=== PATIENT | female | born 1960 | race Caucasian/White ===

== ENCOUNTER 2017-11-12 13:22 | Emergency (ER) | payer MEDICARE, MEDICAID ==
[~2017-11-12] VITALS: Ht 157.5 cm; Wt 64.0 kg
[~2017-11-12 13:22] MED LIST: CEPH-357 PO; DULO-31 PO; IBUP-1984 PO; LORA1TAB PO; NORCO10T PO
[2017-11-12] MEDS ORDERED: GABA-530 PO (13:41)
[2017-11-12] MEDS ORDERED: ASPI-1130 PO (13:41)
[2017-11-12 14:19] LABS: BASOPHILS % (AUTO) 0.5 % (0-1); EOSINOPHILS # (AUTO) 0.2 X10'3 (0-0.9); HEMOGLOBIN 13.4 g/dl (12.0-16.0); LYMPHOCYTES # (AUTO) 2.6 X10'3 (1.1-4.8); LYMPHOCYTES % (AUTO) 29.5 % (21-51); MEAN CORPUSCULAR HEMOGLOBIN 31.6 PG (27.0-31.0); MEAN CORPUSCULAR HGB CONC 34.4 % (33.0-36.5); MEAN CORPUSCULAR VOLUME 91.9 FL (78-98); MEAN PLATELET VOLUME 7.9 FL (7.4-10.4); MONOCYTES # (AUTO) 0.6 X10'3 (0-0.9); MONOCYTES % (AUTO) 6.9 % (2-12); NEUTROPHILS # (AUTO) 5.4 X10'3 (1.8-7.7); NEUTROPHILS % (AUTO) 61.1 % (42-75); PLATELET COUNT 328 X10'3 (140-440); RED BLOOD COUNT 4.24 X10'6 (4.20-5.60); RED CELL DISTRIBUTION WIDTH 13.6 % (11.5-14.5); WHITE BLOOD COUNT 8.8 X10'3 (4.5-11.0)
[2017-11-12 14:33] LABS: ALANINE AMINOTRANSFERASE 21 U/L (12-78); ALBUMIN 3.6 G/DL (3.4-5.0); ALBUMIN/GLOBULIN RATIO 1.1 (1.1-1.5); ALKALINE PHOSPHATASE 116 IU/L (46-116); ANION GAP 7 (8-16); ASPARTATE AMINO TRANSFERASE 14 U/L (10-37); BILIRUBIN,TOTAL 0.5 MG/DL (0.1-1.0); BLOOD UREA NITROGEN 18 MG/DL (7-18); BUN/CREATININE RATIO 17.3 (6.6-38.0); CALCIUM 9.2 MG/DL (8.5-10.1); CHLORIDE 106 MMOL/L (99-107); CREATININE 1.04 MG/DL (0.40-0.90); ETHANOL < 0.010 GM/DL (0.0-0.010); GLUCOSE 100 MG/DL (70-104); POTASSIUM 4.2 MMOL/L (3.5-5.1); SODIUM 141 MMOL/L (135-145); TOTAL CARBON DIOXIDE 28.1 MMOL/L (24-32); TOTAL PROTEIN 6.9 G/DL (6.4-8.2); eGFR 54 ML/MIN
[2017-11-12 14:37] LABS: ACETAMINOPHEN < 2.0 UG/ML (10-30)
[2017-11-12 15:17] LABS: URINE HCG NEGATIVE (NEG)
[2017-11-12 15:23] LABS: URINE AMPHETAMINE SCREEN POSITIVE (Neg); URINE BARBITUATE SCREEN NEGATIVE (Neg); URINE BENZODIAZEPINES SCREEN NEGATIVE (Neg); URINE CANNABINOID SCREEN NEGATIVE (Neg); URINE COCAINE SCREEN NEGATIVE (Neg); URINE METHADONE SCREEN NEGATIVE (Neg); URINE OPIATE SCREEN POSITIVE (Neg); URINE PHENCYCLIDINE SCREEN NEGATIVE (Neg)
[2017-11-13 05:25] VITALS: BP 127/88
[2017-11-13] MEDS ORDERED: ibuprofen tablet 400 MG TABLET PO PRN (07:45)
[2017-11-13] MEDS ORDERED: LORazepam 1 MG tablet PO PRN (07:45)
[2017-11-13] MEDS ORDERED: duloxetine 30mg CAPSULE.DR PO SCH (08:00)
[2017-11-13] MEDS ORDERED: aspirin 81mg tablet.DR PO SCH (08:00)
[2017-11-13] MEDS ORDERED: LORazepam 0.5 MG tablet PO PRN (08:11)
[2017-11-13] MEDS ORDERED: LORazepam 0.5 MG tablet PO SCH ×2 (08:18→20:00)
[2017-11-13] MEDS ORDERED: BUSP10TA11 PO (09:17)
[2017-11-13] MEDS ORDERED: gabapentin 100mg capsule PO SCH (21:00)
== END 2017-11-13 14:40 ==
LOC: ER 13:23
DX: F32.9 Major depressive disorder, single episode, unspecified (principal); R45.851 Suicidal ideations; F15.90 Other stimulant use, unspecified, uncomplicated; J45.909 Unspecified asthma, uncomplicated; F41.9 Anxiety disorder, unspecified; Z90.710 Acquired absence of both cervix and uterus; Z88.1 Allergy status to other antibiotic agents; Z88.5 Allergy status to narcotic agent; Z79.899 Other long term (current) drug therapy; Z79.82 Long term (current) use of aspirin; Z59.0 Homelessness; Z56.0 Unemployment, unspecified
CPT/HCPCS: 36415; 80053; 80305; 80320; 80329; 81025; 85025; 99285; J7030

== ENCOUNTER 2017-11-13 12:50 | Inpatient (IN) | payer MEDICARE, MEDICAID ==
[~2017-11-13] VITALS: Ht 157.5 cm; Wt 70.2 kg
[~2017-11-13 12:50] MED LIST changes: +ASPI-1130 PO; +BUSP10TA11 PO; -CEPH-357 PO; +GABA-530 PO; -NORCO10T PO
[2017-11-13] MEDS ORDERED: nicotine 21mg patch - 24 hr TD ONE (14:50)
[2017-11-13 15:00] VITALS: BP 120/62
[2017-11-13] MEDS ORDERED: acetaminophen 325mg tablet PO PRN ×2 (16:20)
[2017-11-13] MEDS ORDERED: mag hydrox/Alum hydrox/simeth 30ml oral suspension PO PRN (16:20)
[2017-11-13] MEDS ORDERED: magnesium hydroxide 30ml (MOM) UD suspension PO PRN (16:20)
[2017-11-13] MEDS ORDERED: pneumococcal 23-VAL P-sac vacc 25 mcg/0.5ml vial IMVAC ONE (16:45)
[2017-11-13 16:50] LABS: CLARITY,URINE CLEAR (Clear); COLOR,URINE YELLOW (Yellow); GLUCOSE, URINE NEGATIVE (Neg); KETONES,URINE TRACE mg/dl (Neg); LEUKOCYTE ESTERASE ,URINE NEGATIVE (Neg); NITRITES, URINE NEGATIVE (Neg); OCCULT BLOOD,URINE NEGATIVE (Neg); PH,URINE 6.5 (4.8-8.0); PROTEIN,URINE NEGATIVE (Neg); UROBILINOGEN,URINE 0.2 E.U/dL (0.2-1.0)
[2017-11-13 16:56] LABS: UA COLLECTION TYPE NON-SPECIFIED
[2017-11-13 19:00] VITALS: BP 134/71
[2017-11-13] MEDS: traZODone 50mg tablet PO PRN (20:53)
[2017-11-14 07:32] LABS: HEMOGLOBIN A1C 5.6 % (4.5-6.2)
[2017-11-14 07:36] LABS: CHOL/HDL RATIO 4.5 (0.00-4.99); CHOLESTEROL 161 MG/DL (0-200); HDL CHOLESTEROL 36 MG/DL (35-60); LDL CHOLESTEROL 110 MG/DL (50-100); TRIGLYCERIDES 139 MG/DL (20-135)
[2017-11-14 07:41] VITALS: BP 115/65
[2017-11-14] MEDS ORDERED: busPIRone 5mg tablet PO SCH (08:00)
[2017-11-14] MEDS: aspirin 81mg tablet.DR PO SCH (08:33)
[2017-11-14] MEDS: nicotine 21mg patch - 24 hr TD SCH (08:33)
[2017-11-14] MEDS ORDERED: duloxetine 30mg CAPSULE.DR PO ONE (08:50)
[2017-11-14] MEDS: ibuprofen tablet 400 MG TABLET PO PRN (10:45)
[2017-11-14] MEDS: busPIRone 5mg tablet PO SCH ×2 (12:48→20:29)
[2017-11-14 19:00] VITALS: BP 126/73
[2017-11-14] MEDS: traZODone 50mg tablet PO PRN (20:29)
[2017-11-14] MEDS: gabapentin 100mg capsule PO SCH (20:29)
[2017-11-15] MEDS: pantoprazole 40mg Tablet.DR PO SCH (07:56)
[2017-11-15 08:00] VITALS: BP 109/65
[2017-11-15] MEDS: gabapentin 100mg capsule PO SCH ×3 (08:00→20:41)
[2017-11-15] MEDS: duloxetine 30mg CAPSULE.DR PO SCH (08:39)
[2017-11-15] MEDS: aspirin 81mg tablet.DR PO SCH (08:39)
[2017-11-15] MEDS: busPIRone 5mg tablet PO SCH ×3 (08:39→20:41)
[2017-11-15] MEDS: nicotine 21mg patch - 24 hr TD SCH (09:12)
[2017-11-15] MEDS: ibuprofen tablet 400 MG TABLET PO PRN (18:42)
[2017-11-15 19:12] VITALS: BP 129/74
[2017-11-15] MEDS: traZODone 50mg tablet PO PRN (20:41)
[2017-11-16] MEDS: duloxetine 30mg CAPSULE.DR PO SCH ×2 (07:52→12:51)
[2017-11-16] MEDS: busPIRone 5mg tablet PO SCH ×3 (07:52→20:12)
[2017-11-16] MEDS: aspirin 81mg tablet.DR PO SCH (07:52)
[2017-11-16] MEDS: pantoprazole 40mg Tablet.DR PO SCH (07:52)
[2017-11-16] MEDS: gabapentin 100mg capsule PO SCH ×3 (07:52→20:12)
[2017-11-16] MEDS: nicotine 21mg patch - 24 hr TD SCH (07:54)
[2017-11-16 08:00] VITALS: BP 118/81
[2017-11-16] MEDS ORDERED: tuberculin, purif. prot. deriv. 5 units/0.1ml ID ONE (12:40)
[2017-11-16] MEDS: ibuprofen tablet 400 MG TABLET PO PRN (12:56)
[2017-11-16 20:07] VITALS: BP 138/72
[2017-11-16] MEDS: traZODone 50mg tablet PO PRN (20:12)
[2017-11-17] MEDS: busPIRone 5mg tablet PO SCH ×3 (07:49→20:20)
[2017-11-17] MEDS: gabapentin 100mg capsule PO SCH ×3 (07:49→20:19)
[2017-11-17] MEDS: duloxetine 30mg CAPSULE.DR PO SCH ×2 (07:49→12:34)
[2017-11-17] MEDS: pantoprazole 40mg Tablet.DR PO SCH (07:49)
[2017-11-17] MEDS: aspirin 81mg tablet.DR PO SCH (07:50)
[2017-11-17] MEDS: nicotine 21mg patch - 24 hr TD SCH (07:50)
[2017-11-17 08:00] VITALS: BP 111/68
[2017-11-17] MEDS: ibuprofen tablet 400 MG TABLET PO PRN (12:34)
[2017-11-17 19:16] VITALS: BP 135/81
[2017-11-17] MEDS: traZODone 50mg tablet PO PRN (20:19)
[2017-11-18] MEDS: ibuprofen tablet 400 MG TABLET PO PRN ×2 (06:51→20:44)
[2017-11-18 08:00] VITALS: BP 118/77
[2017-11-18] MEDS: aspirin 81mg tablet.DR PO SCH (08:18)
[2017-11-18] MEDS: pantoprazole 40mg Tablet.DR PO SCH (08:18)
[2017-11-18] MEDS: duloxetine 30mg CAPSULE.DR PO SCH ×2 (08:18→12:41)
[2017-11-18] MEDS: nicotine 21mg patch - 24 hr TD SCH (08:20)
[2017-11-18] MEDS: LIDOcaine 5% patch TP SCH (08:47)
[2017-11-18] MEDS: busPIRone 5mg tablet PO SCH ×3 (08:48→20:44)
[2017-11-18] MEDS: tizanidine 4mg tablet PO PRN (09:59)
[2017-11-18 19:00] VITALS: BP 112/53
[2017-11-18] MEDS: gabapentin 300mg capsule PO SCH (20:44)
[2017-11-19] MEDS: duloxetine 30mg CAPSULE.DR PO SCH ×2 (07:26→12:43)
[2017-11-19] MEDS: pantoprazole 40mg Tablet.DR PO SCH (07:27)
[2017-11-19] MEDS: nicotine 21mg patch - 24 hr TD SCH (07:27)
[2017-11-19] MEDS: busPIRone 5mg tablet PO SCH ×3 (07:27→21:00)
[2017-11-19] MEDS: aspirin 81mg tablet.DR PO SCH (07:27)
[2017-11-19] MEDS: LIDOcaine 5% patch TP SCH (07:28)
[2017-11-19 07:57] VITALS: BP 116/71
[2017-11-19] MEDS: hydrOXYzine 25 MG tablet PO PRN (08:58)
[2017-11-19 20:07] VITALS: BP 117/66
[2017-11-19] MEDS: gabapentin 300mg capsule PO SCH (21:00)
[2017-11-19] MEDS: traZODone 50mg tablet PO PRN (21:40)
[2017-11-20] MEDS: pantoprazole 40mg Tablet.DR PO SCH (07:04)
[2017-11-20] MEDS: ibuprofen tablet 400 MG TABLET PO PRN (07:08)
[2017-11-20] MEDS: LIDOcaine 5% patch TP SCH (07:32)
[2017-11-20] MEDS: aspirin 81mg tablet.DR PO SCH (07:33)
[2017-11-20] MEDS: nicotine 21mg patch - 24 hr TD SCH (07:33)
[2017-11-20] MEDS: busPIRone 5mg tablet PO SCH ×3 (07:34→20:28)
[2017-11-20] MEDS: duloxetine 30mg CAPSULE.DR PO SCH ×2 (07:35→12:29)
[2017-11-20 07:43] VITALS: BP 115/64
[2017-11-20] MEDS: hydrOXYzine 25 MG tablet PO PRN (09:40)
[2017-11-20 19:01] VITALS: BP 131/71
[2017-11-20] MEDS: gabapentin 300mg capsule PO SCH (20:27)
[2017-11-20] MEDS: traZODone 50mg tablet PO PRN (20:27)
[2017-11-21 07:32] VITALS: BP 123/74
[2017-11-21] MEDS: LIDOcaine 5% patch TP SCH (07:51)
[2017-11-21] MEDS: duloxetine 30mg CAPSULE.DR PO SCH ×2 (07:51→12:32)
[2017-11-21] MEDS: pantoprazole 40mg Tablet.DR PO SCH (07:51)
[2017-11-21] MEDS: busPIRone 5mg tablet PO SCH ×3 (07:51→20:08)
[2017-11-21] MEDS: aspirin 81mg tablet.DR PO SCH (07:51)
[2017-11-21] MEDS: nicotine 21mg patch - 24 hr TD SCH (08:00)
[2017-11-21 20:00] VITALS: BP 116/68
[2017-11-21] MEDS: gabapentin 300mg capsule PO SCH (20:07)
[2017-11-22] MEDS: pantoprazole 40mg Tablet.DR PO SCH (07:50)
[2017-11-22] MEDS: aspirin 81mg tablet.DR PO SCH (07:51)
[2017-11-22] MEDS: duloxetine 30mg CAPSULE.DR PO SCH ×2 (07:51→12:50)
[2017-11-22] MEDS: busPIRone 5mg tablet PO SCH ×3 (07:51→20:24)
[2017-11-22] MEDS: LIDOcaine 5% patch TP SCH (07:53)
[2017-11-22] MEDS: nicotine 21mg patch - 24 hr TD SCH (07:58)
[2017-11-22 08:12] VITALS: BP 136/67
[2017-11-22] MEDS ORDERED: nicotine prolacrilex 2mg gum BC PRN (08:25)
[2017-11-22 19:17] VITALS: BP 126/74
[2017-11-22] MEDS: gabapentin 300mg capsule PO SCH (20:24)
[2017-11-22] MEDS: traZODone 50mg tablet PO PRN (22:04)
[2017-11-22] MEDS: tizanidine 4mg tablet PO PRN (22:04)
[2017-11-22] MEDS: hydrOXYzine 25 MG tablet PO PRN (22:04)
[2017-11-23] MEDS: LIDOcaine 5% patch TP SCH ×2 (08:00→08:16)
[2017-11-23] MEDS: pantoprazole 40mg Tablet.DR PO SCH (08:15)
[2017-11-23] MEDS: aspirin 81mg tablet.DR PO SCH (08:15)
[2017-11-23] MEDS: duloxetine 30mg CAPSULE.DR PO SCH ×2 (08:16→13:35)
[2017-11-23] MEDS: busPIRone 5mg tablet PO SCH ×3 (08:16→20:27)
[2017-11-23] MEDS: ibuprofen tablet 400 MG TABLET PO PRN (08:34)
[2017-11-23 08:37] VITALS: BP 122/75
[2017-11-23] MEDS ORDERED: TIZA-248 PO (08:49)
[2017-11-23] MEDS ORDERED: HYDR-3686 PO (08:49)
[2017-11-23] MEDS ORDERED: IBUP-1984 PO (08:49)
[2017-11-23] MEDS ORDERED: GABA300C PO (08:49)
[2017-11-23] MEDS ORDERED: LIDO700A47 TP (08:49)
[2017-11-23] MEDS ORDERED: ASPI-1071 PO (08:49)
[2017-11-23] MEDS ORDERED: BUSP15TA3 PO (08:49)
[2017-11-23] MEDS ORDERED: ARIP5TAB20 PO (08:49)
[2017-11-23] MEDS ORDERED: TRAZ-143 PO (08:49)
[2017-11-23] MEDS ORDERED: PANT40TA4 PO (08:49)
[2017-11-23] MEDS ORDERED: DULO30CA51 PO ×2 (08:49)
[2017-11-23 19:34] VITALS: BP 116/73
[2017-11-23] MEDS: traZODone 50mg tablet PO PRN ×2 (20:27→21:16)
[2017-11-23] MEDS: tizanidine 4mg tablet PO PRN (20:28)
[2017-11-23] MEDS: hydrOXYzine 25 MG tablet PO PRN (20:28)
[2017-11-23] MEDS: gabapentin 300mg capsule PO SCH (20:28)
[2017-11-24] MEDS: aspirin 81mg tablet.DR PO SCH (07:43)
[2017-11-24] MEDS: pantoprazole 40mg Tablet.DR PO SCH (07:43)
[2017-11-24] MEDS: busPIRone 5mg tablet PO SCH (07:43)
[2017-11-24] MEDS: duloxetine 30mg CAPSULE.DR PO SCH (07:44)
[2017-11-24] MEDS: ibuprofen tablet 400 MG TABLET PO PRN (07:50)
[2017-11-24] MEDS: LIDOcaine 5% patch TP SCH (07:52)
[2017-11-24 08:00] VITALS: BP 118/75
== END 2017-11-24 08:45 | DRG 885 ==
LOC: ADULT MH 12:50
PROVIDERS: ADMIT Psychiatry & Neurology Psychiatry; ATTEND Psychiatry & Neurology Psychiatry
DX: F33.2 Major depressive disorder, recurrent severe without psychotic features (principal); R45.851 Suicidal ideations; F15.90 Other stimulant use, unspecified, uncomplicated; F41.1 Generalized anxiety disorder; G62.9 Polyneuropathy, unspecified; H54.7 Unspecified visual loss; G47.00 Insomnia, unspecified; G43.909 Migraine, unspecified, not intractable, without status migrainosus; F17.210 Nicotine dependence, cigarettes, uncomplicated; Z59.0 Homelessness; Z90.710 Acquired absence of both cervix and uterus; Z79.82 Long term (current) use of aspirin; Z79.899 Other long term (current) drug therapy; Z88.1 Allergy status to other antibiotic agents; Z88.5 Allergy status to narcotic agent; Z85.048 Personal history of other malignant neoplasm of rectum, rectosigmoid junction, and anus; Z80.1 Family history of malignant neoplasm of trachea, bronchus and lung; Z81.8 Family history of other mental and behavioral disorders; Z23 Encounter for immunization
CPT/HCPCS: 36415; 80061; 81003; 83036; 87070; 90732; 99285; 99406; Q0177

== ENCOUNTER 2018-01-10 12:39 | Emergency (ER) | payer MEDICARE, MEDICAID ==
[~2018-01-10] VITALS: Ht 552.4 cm; Wt 68.0 kg
[~2018-01-10 12:39] MED LIST changes: +ARIP5TAB20 PO; +ASPI-1071 PO; -ASPI-1130 PO; -BUSP10TA11 PO; +BUSP15TA3 PO; -DULO-31 PO; +DULO30CA51 PO; -GABA-530 PO; +GABA300C PO; +HYDR-3686 PO; +LIDO700A47 TP; -LORA1TAB PO; +PANT40TA4 PO; +TIZA-248 PO; +TRAZ-218 PO
[2018-01-10 13:32] LABS: BASOPHILS % (AUTO) 0.5 % (0-1); EOSINOPHILS # (AUTO) 0.3 X10'3 (0-0.9); EOSINOPHILS % (AUTO) 3.5 % (0-6); HEMOGLOBIN 12.6 g/dl (12.0-16.0); LYMPHOCYTES # (AUTO) 2.3 X10'3 (1.1-4.8); LYMPHOCYTES % (AUTO) 27.2 % (21-51); MEAN CORPUSCULAR HEMOGLOBIN 31.6 PG (27.0-31.0); MEAN CORPUSCULAR VOLUME 90.3 FL (78-98); MEAN PLATELET VOLUME 7.6 FL (7.4-10.4); MONOCYTES # (AUTO) 0.5 X10'3 (0-0.9); MONOCYTES % (AUTO) 6.1 % (2-12); NEUTROPHILS # (AUTO) 5.4 X10'3 (1.8-7.7); NEUTROPHILS % (AUTO) 62.7 % (42-75); PLATELET COUNT 275 X10'3 (140-440); RED BLOOD COUNT 3.99 X10'6 (4.20-5.60); WHITE BLOOD COUNT 8.6 X10'3 (4.5-11.0)
[2018-01-10] MEDS ORDERED: GABA-532 PO ×2 (13:37)
[2018-01-10] MEDS ORDERED: ARIP10TA15 PO (13:37)
[2018-01-10] MEDS ORDERED: GABA-530 PO (13:37)
[2018-01-10 13:58] LABS: CLARITY,URINE CLEAR (Clear); COLOR,URINE YELLOW (Yellow); GLUCOSE, URINE NEGATIVE (Neg); KETONES,URINE TRACE mg/dl (Neg); LEUKOCYTE ESTERASE ,URINE NEGATIVE (Neg); NITRITES, URINE NEGATIVE (Neg); OCCULT BLOOD,URINE NEGATIVE (Neg); PROTEIN,URINE NEGATIVE (Neg); UA COLLECTION TYPE CLN CATCH MIDSTREAM; UROBILINOGEN,URINE 0.2 E.U/dL (0.2-1.0)
[2018-01-10 13:59] LABS: URINE HCG NEGATIVE (NEG)
[2018-01-10] MEDS ORDERED: hydrOXYzine 25 MG tablet PO PRN (14:05)
[2018-01-10] MEDS ORDERED: tizanidine 4mg tablet PO PRN (14:05)
[2018-01-10] MEDS ORDERED: traZODone 50mg tablet PO PRN (14:05)
[2018-01-10] MEDS ORDERED: LIDOcaine 5% patch TP PRN (14:05)
[2018-01-10 14:07] LABS: ALANINE AMINOTRANSFERASE 15 U/L (12-78); ALBUMIN 3.5 G/DL (3.4-5.0); ALBUMIN/GLOBULIN RATIO 1.1 (1.1-1.5); ALKALINE PHOSPHATASE 103 IU/L (46-116); ANION GAP 10 (8-16); ASPARTATE AMINO TRANSFERASE 14 U/L (10-37); BILIRUBIN,TOTAL 0.3 MG/DL (0.1-1.0); BLOOD UREA NITROGEN 21 MG/DL (7-18); BUN/CREATININE RATIO 21.2 (6.6-38.0); CALCIUM 8.6 MG/DL (8.5-10.1); CHLORIDE 105 MMOL/L (99-107); CREATININE 0.99 MG/DL (0.40-0.90); GLUCOSE 132 MG/DL (70-104); POTASSIUM 4.1 MMOL/L (3.5-5.1); SODIUM 139 MMOL/L (135-145); TOTAL CARBON DIOXIDE 24.4 MMOL/L (24-32); TOTAL PROTEIN 6.7 G/DL (6.4-8.2); eGFR 57 ML/MIN
[2018-01-10 14:09] LABS: URINE AMPHETAMINE SCREEN POSITIVE (Neg); URINE BARBITUATE SCREEN NEGATIVE (Neg); URINE BENZODIAZEPINES SCREEN NEGATIVE (Neg); URINE CANNABINOID SCREEN NEGATIVE (Neg); URINE COCAINE SCREEN NEGATIVE (Neg); URINE METHADONE SCREEN NEGATIVE (Neg); URINE OPIATE SCREEN NEGATIVE (Neg); URINE PHENCYCLIDINE SCREEN NEGATIVE (Neg)
[2018-01-10 14:15] LABS: ETHANOL < 0.010 GM/DL (0.0-0.010)
[2018-01-10] MEDS: ibuprofen tablet 400 MG TABLET PO PRN (15:23)
[2018-01-10] MEDS: gabapentin 100mg capsule PO SCH ×2 (15:24→20:12)
[2018-01-10] MEDS: busPIRone 15mg tablet PO SCH (20:12)
[2018-01-10] MEDS ORDERED: gabapentin 300mg capsule PO SCH (21:00)
[2018-01-10] MEDS ORDERED: aripiprazole 5mg tablet PO SCH (21:00)
[2018-01-11 05:30] VITALS: BP 117/70
[2018-01-11] MEDS ORDERED: pantoprazole 40mg Tablet.DR PO SCH (07:30)
[2018-01-11] MEDS ORDERED: duloxetine 30mg CAPSULE.DR PO SCH ×2 (08:00→12:30)
[2018-01-11] MEDS ORDERED: aspirin 81mg tablet.DR PO SCH (08:00)
[2018-01-11] MEDS: gabapentin 100mg capsule PO SCH (08:18)
[2018-01-11] MEDS: busPIRone 15mg tablet PO SCH (08:18)
[2018-01-11] MEDS: ibuprofen tablet 400 MG TABLET PO PRN (10:58)
== END 2018-01-11 11:35 ==
LOC: ER 12:39
DX: F32.9 Major depressive disorder, single episode, unspecified (principal); F22 Delusional disorders; F15.10 Other stimulant abuse, uncomplicated; F41.9 Anxiety disorder, unspecified; J45.909 Unspecified asthma, uncomplicated; F17.200 Nicotine dependence, unspecified, uncomplicated; Z88.1 Allergy status to other antibiotic agents; Z88.6 Allergy status to analgesic agent; Z79.82 Long term (current) use of aspirin; Z88.4 Allergy status to anesthetic agent; Z56.0 Unemployment, unspecified; Z59.0 Homelessness; Z90.710 Acquired absence of both cervix and uterus
CPT/HCPCS: 36415; 80053; 80305; 80320; 81003; 81025; 84443; 85025; 99285

== ENCOUNTER 2018-01-11 10:30 | Inpatient (IN) | payer MEDICARE, MEDICAID ==
[~2018-01-11] VITALS: Ht 157.5 cm; Wt 69.5 kg
[~2018-01-11 10:30] MED LIST changes: +ARIP10TA15 PO; -ARIP5TAB20 PO; +GABA-530 PO; -GABA300C PO
[2018-01-11 11:50] VITALS: BP 123/75
[2018-01-11] MEDS ORDERED: mag hydrox/Alum hydrox/simeth 30ml oral suspension PO PRN (11:55)
[2018-01-11] MEDS ORDERED: acetaminophen 325mg tablet PO PRN ×2 (11:55)
[2018-01-11] MEDS ORDERED: magnesium hydroxide 30ml (MOM) UD suspension PO PRN (11:55)
[2018-01-11] MEDS ORDERED: amiodarone 200mg tablet PO SCH (12:58)
[2018-01-11] MEDS ORDERED: tizanidine 4mg tablet PO PRN (13:00)
[2018-01-11 13:17] LABS: CHOL/HDL RATIO 5.2 (0.00-4.99); CHOLESTEROL 166 MG/DL (0-200); HDL CHOLESTEROL 32 MG/DL (35-60); LDL CHOLESTEROL 109 MG/DL (50-100); TRIGLYCERIDES 246 MG/DL (20-135)
[2018-01-11] MEDS: gabapentin 100mg capsule PO SCH ×2 (13:55→20:40)
[2018-01-11] MEDS: busPIRone 15mg tablet PO SCH ×2 (13:55→20:40)
[2018-01-11] MEDS: hydrOXYzine 25 MG tablet PO PRN (20:39)
[2018-01-11] MEDS: traZODone 50mg tablet PO PRN (20:39)
[2018-01-11] MEDS: aripiprazole 5mg tablet PO SCH (20:40)
[2018-01-11] MEDS ORDERED: amitryptiline 50mg tablet PO SCH (21:00)
[2018-01-11 21:55] VITALS: BP 113/65
[2018-01-12] MEDS: pantoprazole 40mg Tablet.DR PO SCH (07:58)
[2018-01-12] MEDS: aspirin 81mg tablet.DR PO SCH (07:58)
[2018-01-12] MEDS: duloxetine 30mg CAPSULE.DR PO SCH ×2 (07:58→12:15)
[2018-01-12] MEDS: busPIRone 15mg tablet PO SCH ×3 (07:58→20:31)
[2018-01-12] MEDS: gabapentin 100mg capsule PO SCH ×3 (07:58→20:31)
[2018-01-12 08:00] VITALS: BP 129/69
[2018-01-12] MEDS: LIDOcaine 5% patch TP PRN (08:01)
[2018-01-12] MEDS ORDERED: mag hydrox/Alum hydrox/simeth 30ml oral suspension PO PRN (09:40)
[2018-01-12] MEDS ORDERED: metoclopramide 5 mg/ml inj IV PRN (09:40)
[2018-01-12] MEDS ORDERED: magnesium hydroxide 30ml (MOM) UD suspension PO PRN (09:40)
[2018-01-12] MEDS ORDERED: ondansetron/PF 4mg/2ml inj IV PRN (09:40)
[2018-01-12] MEDS ORDERED: diphenhydrAMINE 50 mg/ml inj IV PRN (09:40)
[2018-01-12] MEDS ORDERED: HYDROcodone/acetaminophen 10/325mg tab PO PRN (09:40)
[2018-01-12] MEDS: nicotine 21mg patch - 24 hr TD SCH (09:40)
[2018-01-12] MEDS ORDERED: acetaminophen 325mg tablet PO PRN ×2 (09:40)
[2018-01-12] MEDS ORDERED: HYDROcodone/acetaminophen 5mg/325mg tablet PO PRN (09:40)
[2018-01-12] MEDS ORDERED: diphenhydrAMINE 25mg capsule PO PRN (09:40)
[2018-01-12] MEDS ORDERED: morphine 4 MG/ML inj SYRINge IV PRN ×2 (09:40)
[2018-01-12] MEDS ORDERED: bisacodyl 10mg suppository rectal RC PRN (09:40)
[2018-01-12] MEDS ORDERED: acetaminophen 650mg rectal suppository RC PRN (09:40)
[2018-01-12] MEDS ORDERED: nicotine 21mg patch - 24 hr TD ONE (10:20)
[2018-01-12] MEDS: atorvastatin 20mg tablet PO SCH (10:42)
[2018-01-12 11:41] LABS: BASOPHILS % (AUTO) 0.4 % (0-1); EOSINOPHILS # (AUTO) 0.3 X10'3 (0-0.9); EOSINOPHILS % (AUTO) 3.9 % (0-6); HEMATOCRIT 38.1 % (35.0-45.0); HEMOGLOBIN 13.1 g/dl (12.0-16.0); LYMPHOCYTES # (AUTO) 2.7 X10'3 (1.1-4.8); LYMPHOCYTES % (AUTO) 33.8 % (21-51); MEAN CORPUSCULAR HEMOGLOBIN 31.5 PG (27.0-31.0); MEAN CORPUSCULAR HGB CONC 34.4 % (33.0-36.5); MEAN CORPUSCULAR VOLUME 91.3 FL (78-98); MEAN PLATELET VOLUME 7.9 FL (7.4-10.4); MONOCYTES # (AUTO) 0.4 X10'3 (0-0.9); MONOCYTES % (AUTO) 5.2 % (2-12); NEUTROPHILS # (AUTO) 4.5 X10'3 (1.8-7.7); NEUTROPHILS % (AUTO) 56.7 % (42-75); PLATELET COUNT 272 X10'3 (140-440); RED BLOOD COUNT 4.17 X10'6 (4.20-5.60); RED CELL DISTRIBUTION WIDTH 13.1 % (11.5-14.5); WHITE BLOOD COUNT 7.9 X10'3 (4.5-11.0)
[2018-01-12 11:54] LABS: ALANINE AMINOTRANSFERASE 14 U/L (12-78); ALBUMIN 3.4 G/DL (3.4-5.0); ALBUMIN/GLOBULIN RATIO 1.1 (1.1-1.5); ALKALINE PHOSPHATASE 101 IU/L (46-116); ANION GAP 5 (8-16); ASPARTATE AMINO TRANSFERASE 12 U/L (10-37); BILIRUBIN,TOTAL 0.3 MG/DL (0.1-1.0); BLOOD UREA NITROGEN 17 MG/DL (7-18); BUN/CREATININE RATIO 18.9 (6.6-38.0); CALCIUM 8.8 MG/DL (8.5-10.1); CHLORIDE 105 MMOL/L (99-107); GLUCOSE 141 MG/DL (70-104); MAGNESIUM 2.1 MG/DL (1.5-2.4); POTASSIUM 4.4 MMOL/L (3.5-5.1); SODIUM 137 MMOL/L (135-145); TOTAL CARBON DIOXIDE 26.7 MMOL/L (24-32); TOTAL PROTEIN 6.6 G/DL (6.4-8.2); eGFR 64 ML/MIN
[2018-01-12 19:24] VITALS: BP 117/72
[2018-01-12] MEDS: docusate sod 100mg capsule PO SCH (20:00)
[2018-01-12] MEDS: aripiprazole 5mg tablet PO SCH (20:31)
[2018-01-12] MEDS: hydrOXYzine 25 MG tablet PO PRN (20:31)
[2018-01-12] MEDS: traZODone 50mg tablet PO PRN (20:33)
[2018-01-12] MEDS ORDERED: temazepam 15mg capsule PO PRN (21:00)
[2018-01-13 08:00] VITALS: BP 128/85
[2018-01-13] MEDS: atorvastatin 20mg tablet PO SCH (08:00)
[2018-01-13] MEDS: nicotine 21mg patch - 24 hr TD SCH ×2 (08:00→08:02)
[2018-01-13] MEDS: pantoprazole 40mg Tablet.DR PO SCH (08:00)
[2018-01-13] MEDS: docusate sod 100mg capsule PO SCH ×2 (08:00→20:04)
[2018-01-13] MEDS: duloxetine 30mg CAPSULE.DR PO SCH ×2 (08:00→13:28)
[2018-01-13] MEDS: busPIRone 15mg tablet PO SCH ×3 (08:00→20:03)
[2018-01-13] MEDS: aspirin 81mg tablet.DR PO SCH (08:00)
[2018-01-13] MEDS: gabapentin 100mg capsule PO SCH ×3 (08:00→20:03)
[2018-01-13] MEDS: LIDOcaine 5% patch TP PRN (08:59)
[2018-01-13] MEDS: ibuprofen tablet 400 MG TABLET PO PRN (09:23)
[2018-01-13] MEDS ORDERED: ondansetron 4mg rapidly disintigrating tab PO PRN (14:45)
[2018-01-13 19:00] VITALS: BP 122/72
[2018-01-13] MEDS: traZODone 50mg tablet PO PRN (20:04)
[2018-01-13] MEDS: aripiprazole 5mg tablet PO SCH (20:04)
[2018-01-14] MEDS: nicotine 21mg patch - 24 hr TD SCH (07:59)
[2018-01-14] MEDS: duloxetine 30mg CAPSULE.DR PO SCH ×2 (08:01→12:48)
[2018-01-14] MEDS: aspirin 81mg tablet.DR PO SCH (08:01)
[2018-01-14] MEDS: gabapentin 100mg capsule PO SCH ×3 (08:02→20:16)
[2018-01-14] MEDS: busPIRone 15mg tablet PO SCH ×3 (08:02→20:16)
[2018-01-14] MEDS: docusate sod 100mg capsule PO SCH ×2 (08:02→20:16)
[2018-01-14] MEDS: ibuprofen tablet 400 MG TABLET PO PRN (08:02)
[2018-01-14] MEDS: atorvastatin 20mg tablet PO SCH (08:02)
[2018-01-14] MEDS: pantoprazole 40mg Tablet.DR PO SCH (08:02)
[2018-01-14] MEDS: LIDOcaine 5% patch TP PRN (08:03)
[2018-01-14 08:42] VITALS: BP 131/71
[2018-01-14 19:00] VITALS: BP 137/80
[2018-01-14] MEDS: traZODone 50mg tablet PO PRN (20:16)
[2018-01-14] MEDS: aripiprazole 5mg tablet PO SCH (20:16)
[2018-01-15 08:00] VITALS: BP 117/76
[2018-01-15] MEDS: nicotine 21mg patch - 24 hr TD SCH (08:17)
[2018-01-15] MEDS: duloxetine 30mg CAPSULE.DR PO SCH ×2 (08:17→12:49)
[2018-01-15] MEDS: gabapentin 100mg capsule PO SCH ×2 (08:18→12:51)
[2018-01-15] MEDS: busPIRone 15mg tablet PO SCH ×3 (08:18→20:11)
[2018-01-15] MEDS: aspirin 81mg tablet.DR PO SCH (08:18)
[2018-01-15] MEDS: atorvastatin 20mg tablet PO SCH (08:18)
[2018-01-15] MEDS: docusate sod 100mg capsule PO SCH ×2 (08:18→20:11)
[2018-01-15] MEDS: pantoprazole 40mg Tablet.DR PO SCH (08:18)
[2018-01-15] MEDS ORDERED: nicotine prolacrilex 2mg gum BC PRN (17:20)
[2018-01-15 20:00] VITALS: BP 123/61
[2018-01-15] MEDS: gabapentin 300mg capsule PO SCH (20:11)
[2018-01-15] MEDS: aripiprazole 5mg tablet PO SCH (20:11)
[2018-01-15] MEDS: traZODone 50mg tablet PO PRN (20:11)
[2018-01-16 08:00] VITALS: BP 126/67
[2018-01-16] MEDS: atorvastatin 20mg tablet PO SCH (08:29)
[2018-01-16] MEDS: pantoprazole 40mg Tablet.DR PO SCH (08:29)
[2018-01-16] MEDS: aspirin 81mg tablet.DR PO SCH (08:29)
[2018-01-16] MEDS: duloxetine 30mg CAPSULE.DR PO SCH ×2 (08:29→12:36)
[2018-01-16] MEDS: docusate sod 100mg capsule PO SCH ×2 (08:29→20:25)
[2018-01-16] MEDS: busPIRone 15mg tablet PO SCH ×3 (08:29→20:25)
[2018-01-16] MEDS: ibuprofen tablet 400 MG TABLET PO PRN (17:52)
[2018-01-16 19:42] VITALS: BP 116/69
[2018-01-16] MEDS: gabapentin 300mg capsule PO SCH (20:25)
[2018-01-16] MEDS: traZODone 50mg tablet PO PRN (20:25)
[2018-01-16] MEDS: aripiprazole 5mg tablet PO SCH (20:25)
[2018-01-17 08:00] VITALS: BP 104/61
[2018-01-17] MEDS: ibuprofen tablet 400 MG TABLET PO PRN (08:34)
[2018-01-17] MEDS: atorvastatin 20mg tablet PO SCH (08:34)
[2018-01-17] MEDS: docusate sod 100mg capsule PO SCH ×2 (08:34→20:27)
[2018-01-17] MEDS: pantoprazole 40mg Tablet.DR PO SCH (08:34)
[2018-01-17] MEDS: duloxetine 30mg CAPSULE.DR PO SCH ×2 (08:35→12:25)
[2018-01-17] MEDS: busPIRone 15mg tablet PO SCH ×3 (08:35→20:27)
[2018-01-17] MEDS: aspirin 81mg tablet.DR PO SCH (08:35)
[2018-01-17 20:00] VITALS: BP 105/62
[2018-01-17] MEDS: traZODone 50mg tablet PO PRN (20:26)
[2018-01-17] MEDS: aripiprazole 5mg tablet PO SCH (20:27)
[2018-01-17] MEDS: gabapentin 300mg capsule PO SCH (20:27)
[2018-01-18 07:12] VITALS: BP 107/59
[2018-01-18] MEDS: pantoprazole 40mg Tablet.DR PO SCH (07:26)
[2018-01-18] MEDS: busPIRone 15mg tablet PO SCH ×2 (07:27→13:09)
[2018-01-18] MEDS: duloxetine 30mg CAPSULE.DR PO SCH (07:27)
[2018-01-18] MEDS: atorvastatin 20mg tablet PO SCH (07:27)
[2018-01-18] MEDS: aspirin 81mg tablet.DR PO SCH (07:27)
[2018-01-18] MEDS: docusate sod 100mg capsule PO SCH (07:27)
[2018-01-18] MEDS ORDERED: duloxetine 30mg CAPSULE.DR PO ONE (09:20)
[2018-01-18] MEDS: ibuprofen tablet 400 MG TABLET PO PRN (09:40)
[2018-01-18] MEDS ORDERED: duloxetine 30mg CAPSULE.DR PO SCH (13:00)
[2018-01-18 19:00] VITALS: BP 133/84
[2018-01-19] MEDS ORDERED: duloxetine 30mg CAPSULE.DR PO SCH (08:00)
== END 2018-01-18 22:00 | disposition home or self-care (01) | DRG 885 ==
LOC: ADULT MH 10:30
PROVIDERS: ADMIT Psychiatry & Neurology Psychiatry; ATTEND Psychiatry & Neurology Psychiatry
DX: F33.9 Major depressive disorder, recurrent, unspecified (principal); R45.851 Suicidal ideations; E78.5 Hyperlipidemia, unspecified; F17.210 Nicotine dependence, cigarettes, uncomplicated; F15.10 Other stimulant abuse, uncomplicated; J45.909 Unspecified asthma, uncomplicated; F41.9 Anxiety disorder, unspecified; Z59.0 Homelessness; Z90.710 Acquired absence of both cervix and uterus; Z88.1 Allergy status to other antibiotic agents; Z88.5 Allergy status to narcotic agent; Z79.899 Other long term (current) drug therapy
CPT/HCPCS: 36415; 80053; 80061; 83036; 83735; 85025; 87070; 99406; J2270; Q0177

== ENCOUNTER 2019-03-22 11:30 | Emergency (ER) | payer MEDICARE, MEDICAID ==
[~2019-03-22] VITALS: Ht 157.5 cm; Wt 70.8 kg
[~2019-03-22 11:30] MED LIST changes: -DULO30CA51 PO; +DULO30CA52 PO; -IBUP-1984 PO; -TIZA-248 PO; +TIZA4TAB5 PO; -TRAZ-218 PO; +TRAZ-251 PO
[2019-03-22 12:03] LABS: BASOPHILS # (AUTO) 0.1 X10'3 (0-0.2); BASOPHILS % (AUTO) 0.8 % (0-1); EOSINOPHILS # (AUTO) 0.2 X10'3 (0-0.9); EOSINOPHILS % (AUTO) 3.1 % (0-6); HEMATOCRIT 41.6 % (35.0-45.0); HEMOGLOBIN 14.2 g/dl (12.0-16.0); LYMPHOCYTES # (AUTO) 2.9 X10'3 (1.1-4.8); LYMPHOCYTES % (AUTO) 36.5 % (21-51); MEAN CORPUSCULAR HEMOGLOBIN 31.6 PG (27.0-31.0); MEAN CORPUSCULAR HGB CONC 34.3 g/dL (33.0-36.5); MEAN CORPUSCULAR VOLUME 92.1 FL (78-98); MEAN PLATELET VOLUME 8.2 FL (7.4-10.4); MONOCYTES # (AUTO) 0.5 X10'3 (0-0.9); MONOCYTES % (AUTO) 5.9 % (2-12); NEUTROPHILS # (AUTO) 4.3 X10'3 (1.8-7.7); NEUTROPHILS % (AUTO) 53.7 % (42-75); PLATELET COUNT 299 X10'3 (140-440); RED BLOOD COUNT 4.51 X10'6 (4.20-5.60); RED CELL DISTRIBUTION WIDTH 12.8 % (11.5-14.5)
[2019-03-22 12:10] LABS: ALANINE AMINOTRANSFERASE 27 U/L (12-78); ALBUMIN 3.5 G/DL (3.4-5.0); ALKALINE PHOSPHATASE 127 IU/L (46-116); ANION GAP 9 (8-16); ASPARTATE AMINO TRANSFERASE 19 U/L (10-37); BILIRUBIN,TOTAL 0.3 MG/DL (0.1-1.0); BLOOD UREA NITROGEN 14 MG/DL (7-18); BUN/CREATININE RATIO 13.7 (6.6-38.0); CALCIUM 8.9 MG/DL (8.5-10.1); CHLORIDE 106 MMOL/L (99-107); CREATININE 1.02 MG/DL (0.40-0.90); GLUCOSE 114 MG/DL (70-104); POTASSIUM 3.8 MMOL/L (3.5-5.1); SODIUM 141 MMOL/L (135-145); TOTAL CARBON DIOXIDE 26.1 MMOL/L (24-32); eGFR 55 ML/MIN
[2019-03-22 12:13] LABS: PARTIAL THROMBOPLASTIN TIME 27 SECONDS (22-32); TROPONIN I < 0.04 NG/ML (0.0-0.05)
--- NOTE | 2019-03-22 12:54 | NUR ---
PATIENT TO ER #13 WITH C/O NOT FEELING WELL, FUZZY, LEFT SIDE OF FACE TINGLING WITH RADIATION DOWN LEFT ARM. HX "MINI-STROKES" PER PATIENT 2 YEARS AGO. STATES THAT HER RECENT CT SCAN SHOWED MULTIPLE STROKES HAVE OCCURRED IN THE PAST.
[2019-03-22 14:35] VITALS: BP 120/77
== END 2019-03-22 14:42 | disposition home or self-care (01) ==
LOC: ER 11:30
DX: R20.2 Paresthesia of skin (principal); R53.1 Weakness; R42 Dizziness and giddiness; R26.2 Difficulty in walking, not elsewhere classified; R79.1 Abnormal coagulation profile; J45.909 Unspecified asthma, uncomplicated; F41.9 Anxiety disorder, unspecified; F32.9 Major depressive disorder, single episode, unspecified; F17.210 Nicotine dependence, cigarettes, uncomplicated; Z88.1 Allergy status to other antibiotic agents; Z88.6 Allergy status to analgesic agent; Z79.899 Other long term (current) drug therapy; Z79.82 Long term (current) use of aspirin; Z86.73 Personal history of transient ischemic attack (TIA), and cerebral infarction without residual deficits; Z90.710 Acquired absence of both cervix and uterus; Z56.0 Unemployment, unspecified; Z59.0 Homelessness
CPT/HCPCS: 36415; 70450; 71045; 80053; 84484; 85025; 85610; 85730; 93005; 99284

== ENCOUNTER 2019-05-09 11:51 | Emergency (ER) | payer MEDICARE, MEDICAID ==
[~2019-05-09] VITALS: Ht 157.5 cm; Wt 67.3 kg
[2019-05-09 13:57] VITALS: BP 155/92
--- NOTE | 2019-05-09 13:58 | NUR ---
CAME IN FOR HIGH BLOOD PRESSURE AND HAVING A HEAD ACHE HAS HX OF TIA'S
== END 2019-05-09 14:34 | disposition home or self-care (01) ==
LOC: ER 11:51
DX: R03.0 Elevated blood-pressure reading, without diagnosis of hypertension (principal); J45.909 Unspecified asthma, uncomplicated; F41.9 Anxiety disorder, unspecified; F32.9 Major depressive disorder, single episode, unspecified; F15.90 Other stimulant use, unspecified, uncomplicated; Z86.73 Personal history of transient ischemic attack (TIA), and cerebral infarction without residual deficits; Z90.710 Acquired absence of both cervix and uterus; Z59.0 Homelessness; Z56.0 Unemployment, unspecified; Z88.1 Allergy status to other antibiotic agents; Z88.5 Allergy status to narcotic agent; Z79.82 Long term (current) use of aspirin; Z79.899 Other long term (current) drug therapy
CPT/HCPCS: 99281

== ENCOUNTER 2019-11-19 09:46 | Emergency (ER) | payer MEDICARE, MEDICAID ==
[~2019-11-19] VITALS: Ht 157.5 cm; Wt 73.0 kg
[2019-11-19] MEDS ORDERED: metoclopramide 5 mg/ml inj IV ONE (09:55)
[2019-11-19] MEDS ORDERED: diphenhydrAMINE 50 mg/ml inj IV ONE (10:00)
[2019-11-19 10:07] LABS: BASOPHILS # (AUTO) 0.1 X10'3 (0-0.2); BASOPHILS % (AUTO) 0.8 % (0-1); EOSINOPHILS # (AUTO) 0.2 X10'3 (0-0.9); EOSINOPHILS % (AUTO) 2.4 % (0-6); HEMATOCRIT 40.6 % (35.0-45.0); HEMOGLOBIN 13.6 g/dl (12.0-16.0); LYMPHOCYTES # (AUTO) 3.5 X10'3 (1.1-4.8); LYMPHOCYTES % (AUTO) 39.3 % (21-51); MEAN CORPUSCULAR HEMOGLOBIN 31.3 PG (27.0-31.0); MEAN CORPUSCULAR HGB CONC 33.6 g/dL (33.0-36.5); MEAN CORPUSCULAR VOLUME 93.2 FL (78-98); MEAN PLATELET VOLUME 8.3 FL (7.4-10.4); MONOCYTES # (AUTO) 0.5 X10'3 (0-0.9); MONOCYTES % (AUTO) 5.9 % (2-12); NEUTROPHILS # (AUTO) 4.5 X10'3 (1.8-7.7); NEUTROPHILS % (AUTO) 51.6 % (42-75); PLATELET COUNT 295 X10'3 (140-440); RED BLOOD COUNT 4.35 X10'6 (4.20-5.60); WHITE BLOOD COUNT 8.8 X10'3 (4.5-11.0)
[2019-11-19 10:15] LABS: PARTIAL THROMBOPLASTIN TIME 27 SECONDS (22-32)
[2019-11-19 10:17] LABS: ALANINE AMINOTRANSFERASE 20 U/L (12-78); ALBUMIN 3.8 G/DL (3.4-5.0); ALBUMIN/GLOBULIN RATIO 1.2 (1.1-1.5); ALKALINE PHOSPHATASE 92 IU/L (46-116); ANION GAP 6 (8-16); ASPARTATE AMINO TRANSFERASE 14 U/L (10-37); BILIRUBIN,TOTAL 0.5 MG/DL (0.1-1.0); BLOOD UREA NITROGEN 18 MG/DL (7-18); BUN/CREATININE RATIO 17.8 (6.6-38.0); CALCIUM 8.8 MG/DL (8.5-10.1); CHLORIDE 108 MMOL/L (99-107); CREATININE 1.01 MG/DL (0.40-0.90); GLUCOSE 103 MG/DL (70-104); POTASSIUM 4.1 MMOL/L (3.5-5.1); SODIUM 139 MMOL/L (135-145); TOTAL CARBON DIOXIDE 24.7 MMOL/L (24-32); eGFR 56 ML/MIN
[2019-11-19 10:21] LABS: TROPONIN I < 0.04 NG/ML (0.0-0.05)
[2019-11-19 12:30] VITALS: BP 125/74
== END 2019-11-19 12:33 | disposition home or self-care (01) ==
LOC: ER 09:46
DX: F41.9 Anxiety disorder, unspecified (principal); R42 Dizziness and giddiness; J45.909 Unspecified asthma, uncomplicated; F32.9 Major depressive disorder, single episode, unspecified; R51 Headache; R20.0 Anesthesia of skin; R53.1 Weakness; F15.90 Other stimulant use, unspecified, uncomplicated; Z86.73 Personal history of transient ischemic attack (TIA), and cerebral infarction without residual deficits; Z90.710 Acquired absence of both cervix and uterus; Z98.890 Other specified postprocedural states; Z59.0 Homelessness; Z56.0 Unemployment, unspecified; Z72.89 Other problems related to lifestyle; Z88.2 Allergy status to sulfonamides; Z88.5 Allergy status to narcotic agent; Z79.82 Long term (current) use of aspirin; Z79.899 Other long term (current) drug therapy
CPT/HCPCS: 36415; 70450; 71045; 80053; 84484; 85025; 85610; 85730; 93005; 96374; 96375; 99285; J1200; J2765

== ENCOUNTER 2020-03-01 08:02 | Outpatient (CLI) | payer MEDICARE, MEDICAID ==
[~2020-03-01 08:02] MED LIST changes: -PANT40TA4 PO; +PANT40TA54 PO
== END 2020-03-01 23:59 | disposition home or self-care (01) ==
LOC: RAD 08:02
PROVIDERS: ATTEND Psychiatry & Neurology Neurology
DX: R41.89 Other symptoms and signs involving cognitive functions and awareness (principal)
CPT/HCPCS: 95816

== ENCOUNTER 2024-02-09 08:09 | Emergency (ER) | payer MEDICARE, MEDICAID ==
[~2024-02-09] VITALS: Ht 154.9 cm; Wt 72.5 kg
[~2024-02-09 08:09] MED LIST changes: +TIZA-205 PO; -TIZA4TAB5 PO
[2024-02-09 09:06] LABS: CLARITY,URINE TURBID (Clear); COLOR,URINE AMBER (Yellow)
[2024-02-09 09:06] LABS: BASOPHILS # (AUTO) 0.1 X10'3 (0-0.2); BASOPHILS % (AUTO) 0.9 % (0-1); EOSINOPHILS # (AUTO) 0.2 X10'3 (0-0.9); EOSINOPHILS % (AUTO) 2.4 % (0-6); HEMATOCRIT 40.9 % (35.0-45.0); HEMOGLOBIN 13.5 g/dl (12.0-16.0); LYMPHOCYTES # (AUTO) 2.2 X10'3 (1.1-4.8); LYMPHOCYTES % (AUTO) 27.2 % (21-51); MEAN CORPUSCULAR HEMOGLOBIN 31.6 PG (27.0-31.0); MEAN CORPUSCULAR HGB CONC 33.1 g/dL (33.0-36.5); MEAN CORPUSCULAR VOLUME 95.2 FL (78-98); MEAN PLATELET VOLUME 7.9 FL (7.4-10.4); MONOCYTES # (AUTO) 0.5 X10'3 (0-0.9); MONOCYTES % (AUTO) 5.6 % (2-12); NEUTROPHILS # (AUTO) 5.1 X10'3 (1.8-7.7); NEUTROPHILS % (AUTO) 63.9 % (42-75); PLATELET COUNT 327 X10'3 (140-440); RED BLOOD COUNT 4.29 X10'6 (4.20-5.60); RED CELL DISTRIBUTION WIDTH 13.1 % (11.5-14.5)
[2024-02-09 09:08] LABS: URINE HCG NEGATIVE (NEG)
[2024-02-09 09:17] LABS: UA COLLECTION TYPE CLN CATCH MIDSTREAM
[2024-02-09 09:20] LABS: BACTERIA,URINE FEW /HPF (Neg); RBC,URINE TNTC /HPF (0-2); SQUAMOUS EPITHELIAL CELL,UR FEW /LPF (FEW); WBC,URINE 0-4 /HPF (0-4)
[2024-02-09 09:23] LABS: ALANINE AMINOTRANSFERASE 14 U/L (12-78); ALBUMIN 3.5 G/DL (3.4-5.0); ALBUMIN/GLOBULIN RATIO 1.1 (1.1-1.5); ALKALINE PHOSPHATASE 82 IU/L (46-116); ANION GAP 8 (8-16); ASPARTATE AMINO TRANSFERASE 12 U/L (10-37); BILIRUBIN,TOTAL 0.3 MG/DL (0.1-1.0); BLOOD UREA NITROGEN 19 MG/DL (7-18); BUN/CREATININE RATIO 25.7 (10.0-20.0); CALCIUM 9.1 MG/DL (8.5-10.1); CHLORIDE 109 MMOL/L (99-107); CREATININE 0.74 MG/DL (0.40-0.90); GLUCOSE 99 MG/DL (70-104); LIPASE 48 U/L (16-77); POTASSIUM 4.2 MMOL/L (3.5-5.1); SODIUM 142 MMOL/L (135-145); TOTAL CARBON DIOXIDE 24.6 MMOL/L (24-32); TOTAL PROTEIN 6.6 G/DL (6.4-8.2); eCRCL 56 ML/MIN; eGFR 79 ML/MIN
[2024-02-09] MEDS ORDERED: iohexol 300mg/ml 100ml inj. ONE (09:49)
[2024-02-09] MEDS: normal saline 1000ML IV soln IVB ONE ×2 (09:50→13:18)
[2024-02-09] MEDS: ondansetron/PF 4mg/2ml inj IV ONE (10:06)
[2024-02-09] MEDS: morphine 4 MG/ML inj SYRINge IV ONE (10:07)
[2024-02-09] MEDS: HYDROmorphone/PF 0.2 MG/ML SYRINGE IV ONE (13:19)
[2024-02-09 13:21] VITALS: TEMP 98
[2024-02-09] MEDS ORDERED: FLO0.4C PO (14:42)
[2024-02-09] MEDS ORDERED: OXYC-150 PO (14:42)
[2024-02-09 15:10] VITALS: BP 128/54; PULSE 75; RESP 16; O2SAT 98
== END 2024-02-09 15:15 | disposition home or self-care (01) ==
LOC: ER 08:10
DX: N23 Unspecified renal colic (principal); J45.909 Unspecified asthma, uncomplicated; F41.9 Anxiety disorder, unspecified; F32.A Depression, unspecified; F15.90 Other stimulant use, unspecified, uncomplicated; Z88.2 Allergy status to sulfonamides; Z88.1 Allergy status to other antibiotic agents; Z88.8 Allergy status to other drugs, medicaments and biological substances; Z79.82 Long term (current) use of aspirin; Z79.899 Other long term (current) drug therapy; Z86.73 Personal history of transient ischemic attack (TIA), and cerebral infarction without residual deficits; Z90.710 Acquired absence of both cervix and uterus; Z59.00 Homelessness unspecified; Z56.0 Unemployment, unspecified
CPT/HCPCS: 36415; 74178; 80053; 81001; 81025; 83690; 85025; 96361; 96374; 96375; 99285; J1170; J2270; J2405; J7030; Q9967

== ENCOUNTER 2024-07-20 09:42 | Emergency (ER) | payer MEDICARE, MEDICAID ==
[~2024-07-20] VITALS: Ht 154.9 cm; Wt 62.0 kg
[~2024-07-20 09:42] MED LIST changes: +FLO0.4C PO; +OXYC-150 PO
[2024-07-20] MEDS ORDERED: HYDR-3972 PO (11:38)
[2024-07-20 11:49] VITALS: BP 126/70; PULSE 80; RESP 18; TEMP 97.7; O2SAT 98
== END 2024-07-20 11:50 | disposition home or self-care (01) ==
LOC: ER 09:42
DX: R07.89 Other chest pain (principal); J45.909 Unspecified asthma, uncomplicated; F17.200 Nicotine dependence, unspecified, uncomplicated; F15.90 Other stimulant use, unspecified, uncomplicated; Z59.00 Homelessness unspecified; Z88.0 Allergy status to penicillin; Z88.2 Allergy status to sulfonamides; Z88.5 Allergy status to narcotic agent; Z88.8 Allergy status to other drugs, medicaments and biological substances; Z90.710 Acquired absence of both cervix and uterus; Z86.73 Personal history of transient ischemic attack (TIA), and cerebral infarction without residual deficits; W01.0XXA Fall on same level from slipping, tripping and stumbling without subsequent striking against object, initial encounter; Y93.K1 Activity, walking an animal; Y92.89 Other specified places as the place of occurrence of the external cause; Y99.8 Other external cause status
CPT/HCPCS: 71111; 99283

== ENCOUNTER 2024-09-19 08:17 | Emergency (ER) | payer MEDICARE, MEDICAID ==
[~2024-09-19] VITALS: Ht 154.9 cm; Wt 64.1 kg
[2024-09-19 08:19] VITALS: BP 149/67; PULSE 95; RESP 17; O2SAT 99
--- NOTE | 2024-09-19 09:13 | RADIOLOGY REPORT ---
CLINICAL INDICATION: HIP PAIN,left TECHNIQUE: 1 radiographic views of the pelvis and 2 view of left hip were obtained. Comparison: None FINDINGS/IMPRESSION: There is no evidence of acute fracture or dislocation. The visualized joint space is well maintained. The alignment is anatomical. There is no radiopaque foreign body.
--- NOTE | 2024-09-19 09:39 | Physician Documentation ---
History of Present Illness ~ Chief Complaint: Hip pain Stated Complaint: L HIP PAIN Time Seen by MD: 09:05 Primary Medical Doctor: MIGUEL ANGEL CULLEN This is a pleasant 64-year-old female with a history of fall six weeks ago status post evaluation of the round facility presents for evaluation of left hip pain after she attempted to reach something on her Tippy toes and felt a pop in her left hip. She describes a sensation of my leg went out. However she is able to ambulate on that leg since then. She is worried about a fracture. She attempted to treat it with Tylenol, [place] balm and Epsom salt without relief. No other concerns. No new trauma. No concern for tobacco, alcohol or illicit substances use Tetanus witin 5 years: Yes Medication Reconciliation Allergies: Coded Allergies: Sulfa (Sulfonamide Antibiotics) (Verified Allergy, Unknown, 07/20/24) amoxicillin (Verified Allergy, Unknown, RASH, 07/20/24) codeine (Verified Allergy, Unknown, RASH, 07/20/24) Scheduled Aripiprazole* (Abilify*), 1 TAB PO HS, (Reported) Aspirin (Ecotrin*), 81 MG PO DAILY Buspirone HCl (Buspirone HCl), 1 TAB PO TID Duloxetine HCl (Duloxetine HCl), 30 MG PO WL Duloxetine HCl (Duloxetine HCl), 60 MG PO QAM Gabapentin (Gabapentin), 1 CAP PO TID, (Reported) Pantoprazole Sodium (Pantoprazole Sodium), 40 MG PO BKF Tamsulosin Hcl (Flomax), 1 CAP PO DAILY Scheduled PRN Hydroxyzine Hcl* (Atarax*), 25 MG PO TID PRN for anxiety Lidocaine (Lidocaine), 1 PATCH TP DAILY PRN for severe localized pain Oxycodone HCl/Acetaminophen (Percocet 10-325 mg Tablet), 1 TAB PO QID PRN PRN for severe pain (7-10) Tizanidine Hcl (Zanaflex), 4 MG PO TID PRN for muscle spasms Trazodone HCl (Trazodone HCl), 25-50 MG PO HS PRN for Insomnia Past Medical History Past Medical History: CVA/TIA/Stroke, Asthma, Anxiety, Depression Past Surgical History: hysterectomy, other Other Past Family History: none Alcohol Use: Sober Drug Use: methamphetamine Lives with: Other Lives In: Homeless Occupation: unemployed Review of Systems ROS 10 point review of systems was performed and unless noted above in HPI is negative for acute process/complaint. Physical Exam Vital Signs: Temperature: 97.8, Heart Rate: 95, Respiratory Rate: 17, BP: 149/67, Pulse Oximetry: 99, Weight: 64.100 Oxygen Flow Rate: 0 Physical Exam Physical examination: GENERAL: Awake, alert, oriented, GCS 15, no apparent distress, non-toxic appe aring, answers questions, follows commands appropriately. HEENT: Atraumatic, normocephalic, pupils equal, extraocular muscles intact Active gross movements, sclerae anicteric, mucus membranes moist, no stridor. NECK: Midline, no JVD CARDIOVASCULAR: Good skin perfusion without evidence of pallor, mottling. PULMONARY: Nonlabored, symmetric chest rise, no audible wheezing, no accessory muscle use, no respiratory distress, speaking in full sentences. GASTROINTESTINAL: Not distended. NEUROLOGIC: Lucid with normal mental status. Normal facial symmetry. Moves all extremities symmetrically and with purpose. No truncal ataxia. Speech is fluid without evidence of dysarthria or aphasia, no focal deficits appreciated. EXTREMITIES: Acute deformities Skin: warm, dry PSYCHIATRIC: Normal affect, normal insight, normal concentration. Focused exam: [] Able to ambulate with normal gait. Left lower extremity is neurovascularly intact distally. Range of motion is somewhat limited by pain. No deformity, shortening, rotation. Progress Results/Orders Results/Orders Orders - BAHMAN MADRIGAL DO Hip Unilateral 2 Views (09/19/24 08:46) Completed Orders - BAHMAN MADRIGAL DO Hip Unilateral 2 Views (09/19/24 08:46) Vital Signs 09/19/24 08:19 Temp 97.8 Pulse 95 Resp 17 B/P (MAP) 149/67 Pulse Ox 99 O2 Flow Rate 0 Medical Decision Making Findings Facility Status: ED Holds, [facility] process The plan was discussed with the patient, who demonstrates clear understanding of the plan and is in agreement with the plan unless otherwise noted in the chart. All questions have been answered, all concerns were addressed unless otherwise documented. I was available throughout their ED stay for frequent reassessment and questions. Differential Diagnoses (considered and possible or likely): [Hip sprain, hip dislocation, hip fracture] ??Differential Diagnoses (considered and unlikely, not requiring evaluation currently): [No evidence of neurovascular injury] MDM Data Please see HPI for the following: Independent Historians and external Records Review. Historian: [Patient] Independent Historians: ?[Record review] Medication Management: [Reviewed medication list] Social History and determinants: [Reviewed] Please see the body of the note for the following: Any independent interpretations of ECG, imaging studies. All vitals signs/haemodynamics, ordered tests were independently reviewed and interpreted by myself. Nursing triage complaint and vitals reviewed, additional nursing notes were reviewed as available and I agree unless otherwise noted or documented in contradiction in the chart Vital Signs: Independently reviewed Labs: Independently interpreted Imaging: Independently interpreted Old Medical Records: Independently reviewed, see [facility] for relevant summary and information Pulse Oximetry: [98%] interpreted as [normal on room air] by me Additionally notably showing: [Hemodynamically stable. On my independent interpretation x-ray shows no fracture. Radiology read confirms.] Tests considered but not ordered include: [Hematologic workup has been considered but does not appear to be necessary given mechanical nature of the injury.] Social Determinants of Health Impact: Patient was evaluated in [facility], [facility] [place] to healthcare due to below par ratio of patient to medical providers. [] Comorbid Conditions Impacting Present Evaluation and Care/Treatment: [None] Management Discussions with other Healthcare Providers: [None] Treatment and Disposition Medication Management (Given or considered): [Pain management was offered, patient declined]. See EMR for details Consideration for Hospitalization/Escalation/Deescalation of Care: Admission for observation has been considered, [however the patient is able to tolerate p.o., their symptoms are controlled, they are able to rely on oral medications, and their chief complaint/diagnosis can be managed on outpatient basis.] ?ED Course:?[No clinical deterioration] ?Shared decision making:?[Patient is hemodynamically stable for discharge home with follow with their primary care provider. [ ] Specific and cautious return precautions provided and discussed with full understanding. Any incidental findings were also discussed and follow up recommendations given. [] All questions answered. Patient/family were able to verbalize back return precautions. Patient/family agree to plan. Copies of imaging and laboratory studies were provided.] Code status:?FULL Please see the full Electronic Medical Record for full details of nursing documentation, medications list, other records of complete past medical history and conditions, vital signs, laboratory studies, and any radiologic study interpretations by radiologists. Portions of this note were completed using x[employer] dictation software and as a result there may exist minor errors in spelling. I have reviewed elements of past family and social history and agree as included in note. Departure Disposition: HOME / SELF CARE / HOMELESS Impression: Primary Impression: Left hip pain Condition: Improved Discharge Instructions: Musculoskeletal Pain Referrals: NO PRIMARY CARE PROVIDER (PCP) Prescriptions Naproxen (Naproxen) 375 Mg Tablet.dr 1 TAB PO Q12H for pain for 30 Days, #60 TAB 0 Refills Prov: BAHMAN MADRIGAL DO 09/19/24 Education Educated: Patient Educated regarding: diagnosis, treatment, prognosis, need for follow up Signature Scribe Signature: No scribe Attestation: This note accurately reflects clinical decisions, work performed by myself, DO ROHAN Holland NICHOLAS M DO September 19, 2024 09:39
[2024-09-19] MEDS ORDERED: NAPR-1479 PO (09:41)
[2024-09-19 09:51] VITALS: TEMP 97.8
== END 2024-09-19 10:01 | disposition home or self-care (01) ==
LOC: ER 08:18
DX: M25.552 Pain in left hip (principal); J45.909 Unspecified asthma, uncomplicated; F15.90 Other stimulant use, unspecified, uncomplicated; F10.90 Alcohol use, unspecified, uncomplicated; F41.9 Anxiety disorder, unspecified; F32.A Depression, unspecified; Z86.73 Personal history of transient ischemic attack (TIA), and cerebral infarction without residual deficits; Z88.0 Allergy status to penicillin; Z88.2 Allergy status to sulfonamides; Z88.5 Allergy status to narcotic agent; Z88.8 Allergy status to other drugs, medicaments and biological substances; Z90.710 Acquired absence of both cervix and uterus; Z79.82 Long term (current) use of aspirin; Y90.9 Presence of alcohol in blood, level not specified
CPT/HCPCS: 73502; 99284